=== PATIENT | female | born 1990 | race Caucasian/White ===

== ENCOUNTER 2022-07-29 23:14 | Emergency (ER) | payer BC, OTHER | END 2022-07-30 00:20 | disposition home or self-care (01) | LOC: JP.ED 23:14 | DX: N30.01 Acute cystitis with hematuria (principal); E03.9 Hypothyroidism, unspecified; Z87.891 Personal history of nicotine dependence; Z79.899 Other long term (current) drug therapy | CPT/HCPCS: 81001; 99282; 99283 ==

== ENCOUNTER 2022-10-10 14:12 | Emergency (ER) | payer OTHER | END 2022-10-10 15:35 | disposition home or self-care (01) | LOC: JP.ED 14:12 | DX: J02.9 Acute pharyngitis, unspecified (principal); E03.9 Hypothyroidism, unspecified; Z86.16 Personal history of COVID-19; Z79.899 Other long term (current) drug therapy | CPT/HCPCS: 87081; 87880-QW; 99283 ==